=== PATIENT | male | born 1970 | race Caucasian/White ===

== ENCOUNTER → 2017-06-08 | Outpatient (CLI) | payer OTHER ==
[2017-06-08] MEDS: IOHEXOL 300 MG/ML 100ML VIAL. IV (15:40)
== END | disposition home or self-care (01) ==
LOC: KCIC CT 15:11
DX: J02.9 Acute pharyngitis, unspecified (principal); R13.10 Dysphagia, unspecified
CPT/HCPCS: 70491; Q9967